=== PATIENT | female | born 1985 | race Caucasian/White ===

== ENCOUNTER 2021-02-18 23:17 | Emergency (ER) | payer OTHER ==
[~2021-02-18 23:17] MED LIST: AUGMENTIN 875-1 EACH PO
[2021-02-18 23:54] LABS: BASOPHIL 0.6 % (0-2); EOSINOPHIL 1.8 % (0-5); HCT 41.1 % (37.0-47.0); HGB 13.1 g/dl (12.5-16.0); LYMPHOCYTE 36.9 % (15-48); MCH 27.5 pg (25.0-31.0); MCHC 31.9 g/dL (32.0-36.0); MCV 86.3 fL (78.0-100.0); MONOCYTE 7.5 % (0-12); MPV 10.2 fL (6.0-9.5); NEUTROPHIL 52.9 % (41-80); NRBC 0; PLT 295 K/uL (150-400); RBC 4.76 M/uL (4.20-5.40); RDW 13.5 % (11.5-14.0); WBC 10.9 K/uL (4.0-10.5)
[2021-02-18 23:55] LABS: BILIRUBIN NEGATIVE (NEGATIVE); BLOOD 1+ Ery/uL (NEGATIVE); CLARITY CLEAR (CLEAR); COLOR YELLOW (YELLOW); GLUCOSE (U) NORMAL (NORMAL); LEUKOCYTES NEGATIVE Leu/uL (NEGATIVE); NITRITE NEGATIVE (NEGATIVE); PROTEIN NEGATIVE (NEGATIVE); UROBILINOGEN 0.2 mg/dL (0.2-1.0); pH 6.5 (5.0-9.0)
[2021-02-19 00:08] LABS: URINARY WBC RARE
[2021-02-19 00:09] LABS: BACTERIA 1+
[2021-02-19 00:12] LABS: ALBUMIN 3.9 g/dL (3.4-5.0); BILIRUBIN - TOTAL 0.3 mg/dL (0.2-1.0); BUN/CREAT RATIO (CALC) 14.8 RATIO; CREATININE 0.81 mg/dL (0.51-0.95); GLOBULIN (CALCULATION) 3.3 g/dL; POTASSIUM 3.6 mmol/L (3.5-5.1); TOTAL PROTEIN 7.2 g/dL (6.4-8.2)
[2021-02-19] MEDS ORDERED: ZOFRAN4 M1 PO (02:07)
[2021-02-19] MEDS ORDERED: OXY-IR 5MG5 MG PO (02:08)
== END 2021-02-19 02:30 | disposition home or self-care (01) ==
LOC: FER 23:17
PROVIDERS: Emergency Medicine
DX: R10.11 Right upper quadrant pain (principal); Z88.2 Allergy status to sulfonamides; Z88.5 Allergy status to narcotic agent
CPT/HCPCS: 36415; 80053; 81001; 83690; 85025; J1170; J2405; J7030; Q9967